=== PATIENT | male | born 1990 | race Caucasian/White ===

== ENCOUNTER 2018-01-04 20:19 | Emergency (ER) | payer OTHER ==
[2018-01-04 20:35] VITALS: BP 127/95; PULSE 89; RESP 20; TEMP 96.4; O2SAT 98
--- NOTE | 2018-01-04 20:54 | C.PDOC ---
History Of Present Illness 27 yo male w/o significant PMHx come in for evaluation of " feeling sick" after smoke cannabinoid for first time. Pt denies headache, dizziness, CP, SOB, dyspnea, palpitation, abd. pain, back pain, denies suicidal or homocidal ideation. Denies previous hx of drug use. Ambulate to Ed accompanied by friends. Time Seen by Provider: 01/04/18 20:44 Chief Complaint (Nursing): Medical Clearance History Per: Patient, Other Past Medical History Reviewed: Historical Data, Nursing Documentation, Vital Signs Vital Signs: Last Vital Signs Temp 96.4 F L 01/04/18 20:28 Pulse 89 01/04/18 20:28 Resp 20 01/04/18 20:28 BP 127/95 H 01/04/18 20:28 Pulse Ox 98 01/04/18 20:28 - Medical History PMH: No Chronic Diseases Family History: States: No Known Family Hx - Social History Hx Tobacco Use: No Hx Alcohol Use: No Hx Substance Use: No - Immunization History Hx Tetanus Toxoid Vaccination: No Hx Influenza Vaccination: Yes Hx Pneumococcal Vaccination: No Review Of Systems Except As Marked, All Systems Reviewed And Found Negative. Constitutional: Negative for: Fever, Chills ENT: Negative for: Mouth Swelling, Throat Pain, Throat Swelling Cardiovascular: Negative for: Chest Pain, Palpitations, Orthopnea, Edema, Light Headedness Respiratory: Negative for: Cough, Shortness of Breath Gastrointestinal: Positive for: Vomiting. Negative for: Nausea, Abdominal Pain Musculoskeletal: Negative for: Neck Pain, Back Pain Skin: Negative for: Rash Neurological: Negative for: Weakness, Numbness, Altered Mental Status, Headache, Dizziness Physical Exam - Physical Exam Appears: Well, Non-toxic, No Acute Distress Skin: Normal Color, Warm, Dry, No Rash Head: Normacephalic Eye(s): bilateral: PERRL Ear(s): Bilateral: Normal Nose: No Flaring, No Discharge Oral Mucosa: Moist Tongue: No Swelling Lips: No Swelling Throat: No Erythema, No Drooling Neck: Trachea Midline, Supple Cardiovascular: Rhythm Regular, No Murmur, No JVD Respiratory: No Decreased Breath Sounds, No Accessory Muscle Use, No Stridor, No Wheezing Gastrointestinal/Abdominal: Soft, No Tenderness, No Distention, No Guarding Extremity: Normal ROM, No Deformity, No Swelling Neurological/Psych: Oriented x3, Normal Speech, Normal Motor, Normal Sensation, Normal Reflexes ED Course And Treatment O2 Sat by Pulse Oximetry: 98 Pulse Ox Interpretation: Normal Progress Note: On re-eval, pt is afebrile, hemodynamicaly stable. NOn-toxic. AAO#3, ambulatoyr in Ed with stable gait. PulseOx 98% RA. Head: AT/NC. Neck: Supple, (-) JVD. Lungs: CTA B/L, BS equal B/L. ABd: benign, (-) guarding, (-) rebound. Neurologicaly intact. Pt advised. ref. to F/U with PMD in 2-3 days for re-eavl. Stable for discharge now. Disposition Counseled Patient/Family Regarding: Diagnosis, Need For Followup - Disposition Referrals: [facility] [Outside] Disposition: HOME/ ROUTINE Disposition Time: 21:11 Condition: STABLE Additional Instructions: Encourage fluids Follow up with PMD in 2-3 days for re-evaluation. return if any new changes. Instructions: Marijuana Use and Addiction Forms: [employer] (Swedish) - Clinical Impression Clinical Impression: Cannabinosis
== END 2018-01-04 21:19 | disposition home or self-care (01) ==
LOC: C.ER 20:19 → EDBD 20:19 → C.ER 21:19
DX: J66.2 Cannabinosis (principal)